=== PATIENT | male | born 1945 | race Caucasian/White ===

== ENCOUNTER 2017-02-24 05:40 | Outpatient (CLI) | payer MEDICARE ==
[~2017-02-24] VITALS: Ht 190.5 cm; Wt 90.7 kg
[2017-02-24] MEDS ORDERED: RANI150T15 PO (10:02)
[2017-02-24] MEDS ORDERED: LISI-552 PO (10:02)
[2017-02-24] MEDS ORDERED: MELA5CAP PO (10:02)
[2017-02-26] MEDS ORDERED: PANT40TA2 PO (10:55)
== END 2017-02-24 10:11 ==
LOC: PREOP 05:40
PROVIDERS: ATTEND Surgery Pediatric Surgery
DX: Z01.818 Encounter for other preprocedural examination (principal); R19.4 Change in bowel habit; R19.7 Diarrhea, unspecified; K21.9 Gastro-esophageal reflux disease without esophagitis; Z86.010 Personal history of colon polyps

== ENCOUNTER 2017-02-26 08:28 | Day surgery (SDC) | payer MEDICARE ==
[~2017-02-26] VITALS: Ht 190.5 cm; Wt 90.7 kg
[~2017-02-26 08:28] MED LIST: LISI-552 PO; MELA5CAP PO; RANI150T15 PO
[2017-02-26 08:40] VITALS: BP 134/79
[2017-02-26] MEDS ORDERED: NS IV 500 ML 500 ML IV PRN (08:50)
[2017-02-26] MEDS ORDERED: LIDOCAINE JELLY 2% (XYLOCAINE) 5 ML TUBE MM PRN (09:00)
[2017-02-26] MEDS ORDERED: HURRICAINE EXT TUBE (BENZOCAINE) XX PRN (09:00)
[2017-02-26] MEDS ORDERED: NALOXONE 0.4 MG/ML 1 ML (NARCAN) VIAL IVP PRN (09:00)
[2017-02-26] MEDS ORDERED: FLUMAZENIL (ROMAZICON) 0.1 MG/ML 5 ML VIAL INJ PRN (09:00)
[2017-02-26] MEDS ORDERED: LIDOCAINE JELLY 2% (XYLOCAINE) 5 ML TUBE ONE (09:38)
[2017-02-26] MEDS ORDERED: fentaNYL INJECTION 100 MCG/2 ML AMP ONE ×2 (09:38)
[2017-02-26] MEDS ORDERED: HURRICAINE EXT TUBE (BENZOCAINE) ONE (09:39)
[2017-02-26] MEDS ORDERED: MIDAZOLAM 2 MG/2 ML (VERSED) VIAL ONE ×5 (09:39)
--- NOTE | 2017-02-26 09:41 | Conscious Sedation/ASA ---
Conscious Sedation Pre-Proced Time Reviewed: 09:30 ASA Class: 2 Airway Mallampati Classification: (red devil appropriate class) I. II. III, IV Lungs Heart ASA score ASA 1: a normal healthy patient ASA 2: a patient with a mild systemic disease (mid diabetes, controlled hypertension, obesity ASA 3: a patient with a severe systemic disease that limits activity (angina , COPD, prior Myocardial infarction) ASA 4: a patient with an incapacitating disease that is a constant threat to life (CHF, renal failure) ASA 5: a moribund patient not expected to survive 24 hrs. (ruptured aneurysm) ASA 6: a declared brain patient whose organs are being harvested. For emergent operations, add the letter E after the classification Grade 2 Sedation Plan: Analgesia, Amnesia, Plan communicated to team members, Discussed options with patient/fam, Discussed risks with patient/fam Note The patient is an appropriate candidate to undergo the planned procedure, sedation, and anesthesia. The patient immediately re-assessed prior to indication. DEEPAK RUSHING MD Feb 26, 2017 9:41 am
--- NOTE | 2017-02-26 09:42 | Progress Note-Pre Operative ---
Pre-Operative Progress Note H&P Reviewed The H&P was reviewed, patient examined and no changes noted. Date H&P Reviewed: Feb 26, 2017 Time H&P Reviewed: 09:30 Pre-Operative Diagnosis: GERD, hx of colon polyp DEEPAK RUSHING MD Feb 26, 2017 9:42 am
[2017-02-26] MEDS ORDERED: ONDANSETRON 4 MG/2 ML (SDV) Z0FRAN IV PRN (09:45)
[2017-02-26] MEDS ORDERED: HYDROcodone/APAP 5 MG/325 MG (LORTAB) TAB PO PRN (09:45)
[2017-02-26] MEDS ORDERED: ACETAMINOPHEN 325 MG TABLET/CAPLET (TYLENOL) PO PRN (09:45)
[2017-02-26] MEDS ORDERED: morphine INJ 10 MG/ML 1ML (SYR OR VIAL) IV PRN (09:45)
[2017-02-26] MEDS: fentaNYL INJECTION 100 MCG/2 ML AMP IVP PRN ×4 (09:50→10:10)
[2017-02-26] MEDS: MIDAZOLAM 2 MG/2 ML (VERSED) VIAL IVP PRN ×6 (09:51→10:39)
--- NOTE | 2017-02-26 10:54 | Progress Note-Post Operative ---
Post-Operative Progess Note Surgeon (s)/Service Planner (s) Surgeon DEEPAK RUSHING MD Service Planner: none Pre-Operative Diagnosis GERD, hx of colon polyp Post-Operative Diagnosis reflux esophagitis(class B), small HH(2cm), moderate gastritis. chronic stage 2 ext and int hemorrhoids. Post-Op Procedure Note Date of Procedure: Feb 26, 2017 Name of Procedure Performed: reflux esophagitis(class B), small HH(2cm), moderate gastritis. chronic stage 2 ext and int hemorrhoids. Description of the Procedure: EGD with bx. Colonoscopy. Findings of the Procedure . Anesthesia Type CS Estimated blood loss (mL): minimal Specimen(s) collected/removed GE jxn, antrum DEEPAK RUSHING MD Feb 26, 2017 10:54 am
[2017-02-26] MEDS ORDERED: PANT40TA2 PO (10:55)
--- NOTE | 2017-02-26 10:56 | Discharge Inst-Surgical ---
D/C Lap Instructions-KIDO New, Converted, or Re-Newed RX: RX on Chart Follow Up Appt in 6 weeks Activity as tolerated High Fiber Diet 25g or more per day Avoid Alcohol, Caffeine, Spicy [place] and Acid foods. Drink 64 fluid oz or more of fluids per day. Symptoms to Report: Fever over 101 degree F, Nausea/Vomiting If any problems/questions: Contact your physician or go to Emergency Room DEEPAK RUSHING MD Feb 26, 2017 10:56 am
[2017-02-26 11:05] VITALS: BP 107/63
[2017-02-26 11:30] VITALS: BP 117/75
[2017-02-26 11:45] VITALS: BP 117/75
--- NOTE | 2017-02-26 14:41 | PROCEDURE REPORT ---
PROCEDURE PHYSICIAN: DEEPAK FREY DATE OF PROCEDURE: 02/26/2017 ATTENDING PRIMARY CARE PHYSICIAN: Dr. Bereket Morataya. PREOPERATIVE DIAGNOSIS: 1. Gastroesophageal reflux disease. 2. History of colon polyp. POSTOPERATIVE DIAGNOSES: 1. Reflux esophagitis, class B. 2. Small hiatal hernia, approximately 2 cm in size. 3. Moderate severity gastritis. 4. Chronic, stage II external and internal hemorrhoids. 5. The remainder of the rectum and colon were normal. PROCEDURE: 1. EGD with biopsy. 2. Colonoscopy. SURGEON: Dr. Frey. ANESTHESIA: Conscious sedation. ESTIMATED BLOOD LOSS: Minimal. FINDINGS: EGD: 1. Reflux esophagitis, class B. 2. Small hiatal hernia, approximately 2 cm in size. 3. There was a moderate severity gastritis. 4. There were no formal ulcers, polyps or any neoplasms. 5. The pylorus and duodenum appeared normal. COLONOSCOPY: 1. Chronic, stage II external and internal hemorrhoids. 2. Prostate gland was palpable and appeared normal. 3. The remainder of the rectum and colon were normal. No polyps identified. DISPOSITION: The patient tolerated the procedure well. BRIEF HISTORY: Mr. Se Dc is a 72-year-old male with symptoms of gastroesophageal reflux disease, as well as increased belching, bloating as well as mild dysphagia. He reports that he has also had some looser stools recently. He states that he did have a colonoscopy in 2011 where a polyp of the ascending colon was identified which was also biopsied and benign. He does not report any family history of colon cancer. He reports that he has been taking more antacids due to his upper gastrointestinal symptoms. The patient was brought to the endoscopy suite, laid in left lateral decubitus position. After adequate IV pain and sedative medications and conscious sedation anesthesia, the mouthpiece was applied. The endoscope was placed in the mouth, visualizing the pharynx and hypopharyngeal region. Vocal cords, epiglottis and vallecula identified to be normal. The endoscope was gently intubated into the esophageal opening and the esophagus insufflated. The endoscope was then advanced through the first, second, and 3rd portions of the esophagus and at the level of the GE junction, a reflux esophagitis, class B identified. There were no ulcers or strictures identified in this region. The endoscope was then advanced into the stomach and endoscope retroflexed visualizing a small hiatal hernia, approximately 2 cm in size. There was a moderate severity gastritis also noted throughout the stomach. There were no formal ulcers, polyps or any neoplasms identified. A biopsy was taken of the stomach antrum, with forceps of visualization of good hemostasis. The endoscope was slowly withdrawn while taking a second look and suctioning of residual air with no additional findings. The patient tolerated the procedure well. For his symptoms of belching, bloating, reflux and dysphagia we will recommend conservative management with necessary lifestyle and diet accommodation including smaller, more frequent meals, avoidance of eating at night, as well as head elevation while lying supine. He also needs to avoid caffeinated beverages, spicy, greasy and acidic foods. We will also start him on Protonix 40 mg daily. If he does have continued or worsening symptoms despite maximal medical therapy, he may be a candidate for laparoscopic hiatal hernia repair as well as an antireflux procedure. Before this we would proceed with esophageal manometric study to rule out any upper gastrointestinal dysmotility issues. Under the same conscious sedation anesthesia, we then proceeded with the colonoscopy portion the procedure. A digital rectal examination was performed, which revealed chronic external and internal hemorrhoids which were not actively edematous or inflamed and no bleeding. Normal sphincter tone was felt and there were no palpable masses. Prostate gland was palpable and appeared normal. The endoscope was then intubated into the anus and the rectum gently insufflated. The endoscope was then advanced through the valves of [place] the rectum where no polyps or any neoplasms identified. We then proceeded through the sigmoid colon where no diverticulosis identified. The endoscope was then advanced through the remainder of the descending, transverse, and ascending colon of the cecum. These segments were normal. There were no polyps or any neoplasms identified throughout the colon or rectum. The endoscope was then slowly withdrawn while taking a second look and suctioning of residual air with no additional findings. The patient tolerated this portion the procedure well. We will have him continue with medical management with a high fiber diet with at least 30 grams of fiber per day, as well as at least 64 fluid ounces of water daily to promote soft stools on a daily basis. No polyps were identified and we feel at this time, he may wait another 10 years for his next colonoscopy however, sooner if any problems arise. Job ID: [id number] Dictated Date: 02/26/2017 10:56:04 Insurance Account Executive Date: 02/26/2017 14:30:00 / felix
--- OUTSIDE RECORDS SUMMARY | 2017-03-30 16:37 | XMS REPORT | Continuity of Care Document ---
Author Author [facility] Organization [facility] Address Unknown Phone Unavailable Allergies Active Description Code Type Severity Reaction Onset Reported/Identified Relationship to Patient Clinical Status Yes ciprofloxacin [id number] Drug Allergy Mild RASH 02/24/2017 Medications Problems Date Dx Coded Attending Type Code Diagnosis Diagnosed By 02/01/2016 ZUNILDA DE LA ROSA MD, Ot N44.8 02/20/2016 ZUNILDA DE LA ROSA MD, Ot N44.8 03/06/2016 ZUNILDA DE LA ROSA MD, Ot N44.8 02/24/2017 DEEPAK RUSHING MD, Ot K21.9 GASTRO-ESOPHAGEAL REFLUX DISEASE WITHOUT 02/24/2017 DEEPAK RUSHING MD Ot R19.4 CHANGE IN BOWEL HABIT 02/24/2017 DEEPAK RUSHING MD Ot R19.7 DIARRHEA, UNSPECIFIED 02/24/2017 DEEPAK RUSHING MD Ot Z01.818 ENCOUNTER FOR OTHER PREPROCEDURAL EXAMIN 02/24/2017 DEEPAK RUSHING MD Ot Z86.010 PERSONAL HISTORY OF COLONIC POLYPS 02/25/2017 DEEPAK RUSHING MD Ot K21.9 GASTRO-ESOPHAGEAL REFLUX DISEASE WITHOUT 02/25/2017 DEEPAK RUSHING MD Ot R19.4 CHANGE IN BOWEL HABIT 02/25/2017 DEEPAK RUSHING MD Ot R19.7 DIARRHEA, UNSPECIFIED 02/25/2017 DEEPAK RUSHING MD Ot Z01.818 ENCOUNTER FOR OTHER PREPROCEDURAL EXAMIN 02/25/2017 DEEPAK RUSHING MD Ot Z86.010 PERSONAL HISTORY OF COLONIC POLYPS 02/26/2017 ZUNILDA DE LA ROSA MD Ot N44.8 OTHER NONINFLAMMATORY DISORDERS OF THE T 02/26/2017 ZUNILDA DE LA ROSA MD Ot N44.8 OTHER NONINFLAMMATORY DISORDERS OF THE T 02/27/2017 DEEPAK RUSHING MD Ot K21.0 GASTRO-ESOPHAGEAL REFLUX DISEASE WITH ES 02/27/2017 DEEPAK RUSHING MD Ot K29.70 GASTRITIS, UNSPECIFIED, WITHOUT BLEEDING 02/27/2017 DEEPAK RUSHING MD Ot K44.9 DIAPHRAGMATIC HERNIA WITHOUT OBSTRUCTION 02/27/2017 DEEPAK RUSHING MD Ot K64.1 SECOND DEGREE HEMORRHOIDS 02/27/2017 DEEPAK RUSHING MD Ot K21.0 GASTRO-ESOPHAGEAL REFLUX DISEASE WITH ES 02/27/2017 DEEPAK RUSHING MD Ot K29.70 GASTRITIS, UNSPECIFIED, WITHOUT BLEEDING 02/27/2017 DEEPAK RUSHING MD Ot K44.9 DIAPHRAGMATIC HERNIA WITHOUT OBSTRUCTION 02/27/2017 DEEPAK RUSHING MD Ot K64.1 SECOND DEGREE HEMORRHOIDS 03/07/2017 DEEPAK RUSHING MD Ot K21.0 GASTRO-ESOPHAGEAL REFLUX DISEASE WITH ES 03/07/2017 DEEPAK RUSHING MD, Ot K29.70 GASTRITIS, UNSPECIFIED, WITHOUT BLEEDING 03/07/2017 DEEPAK RUSHING MD Ot K44.9 DIAPHRAGMATIC HERNIA WITHOUT OBSTRUCTION 03/07/2017 DEEPAK RUSHING MD Ot K64.1 SECOND DEGREE HEMORRHOIDS Procedures Results Encounters ACCT No. Visit Date/Time Discharge Status Pt. Type Provider Facility Loc./Unit Complaint [id number] 02/26/2017 08:28:00 2016 11:45:00 DIS Outpatient DEEPAK RUSHING MD [facility] ENDO REFLUX;HX POLYPS;CHANGE IN BOWEL HABITS [id number] 02/24/2017 05:40:00 2016 10:11:00 DIS Outpatient DEEPAK RUSHING MD [facility] PREOP REFLUX;HX POLYPS; CHANGE IN BOWEL HABITS [id number] 01/31/2016 12:25:00 ACT Outpatient RJ FOX , ZUNILDA Alicia [facility] RAD INFLAMATORY DISORDER OF TESTIS
== END 2017-02-26 11:45 | disposition home or self-care (01) ==
LOC: ENDO 08:28
PROVIDERS: ATTEND Surgery Pediatric Surgery
DX: K21.0 Gastro-esophageal reflux disease with esophagitis (principal); K64.1 Second degree hemorrhoids; K29.70 Gastritis, unspecified, without bleeding; K44.9 Diaphragmatic hernia without obstruction or gangrene
CPT/HCPCS: 88305

== ENCOUNTER → 2017-10-07 | Outpatient (CLI) | payer MEDICARE ==
[~2017-10-07] MED LIST changes: +PANT40TA2 PO
--- NOTE | 2017-10-07 12:06 | Diagnostic Imaging Report ---
PA and lateral views of the chest. INDICATION: Chest pain. FINDINGS: The lungs are clear. The heart size is normal. No effusion or pneumothorax. The mediastinum and john appear unremarkable. Anchors projecting over the right humeral head are suggestive of prior rotator cuff surgery. IMPRESSION: No acute process. Dictated by: Dictated on workstation # [id number]
--- NOTE | 2017-10-07 12:09 | Diagnostic Imaging Report ---
EXAMINATION: Two views of the right clavicle. INDICATION: Right clavicle pain. FINDINGS: There are osteoarthritic changes with superior osteophytes and mild inferior osteophytes at the right AC joint. There is no fracture or dislocation seen. Anchors projecting over the right humerus head level seen. IMPRESSION: Moderate acromioclavicular joint osteoarthritis. Dictated by: Dictated on workstation # [id number]
== END ==
LOC: RAD 11:37
DX: R07.9 Chest pain, unspecified (principal); M19.011 Primary osteoarthritis, right shoulder
CPT/HCPCS: 71020; 73000

== ENCOUNTER → 2018-02-26 | Outpatient (CLI) | payer MEDICARE ==
[~2018-02-26] MED LIST changes: +ASPI-983 PO; +ASPI-999 PO; +ATOR20TA49 PO; +CLOP75TA28 PO; +PANT40TA3 PO; +SUCR1TAB PO; +SUCR1TAB36 PO
[2018-02-26 09:43] LABS: BASOPHILS % (AUTO) 0 % (0-10); EOSINOPHILS % (AUTO) 1 % (0-10); HEMATOCRIT 43 % (40-54); HEMOGLOBIN 14.9 G/DL (13.3-17.7); LYMPHOCYTES # (AUTO) 0.8 X 10^3 (1.0-4.0); LYMPHOCYTES % (AUTO) 14 % (12-44); MEAN CORPUSCULAR HEMOGLOBIN 32 PG (25-34); MEAN CORPUSCULAR HGB CONC 35 G/DL (32-36); MEAN CORPUSCULAR VOLUME 91 FL (80-99); MEAN PLATELET VOLUME 10.2 FL (7.4-10.4); MONOCYTES # (AUTO) 0.6 X 10^3 (0.0-1.0); MONOCYTES % (AUTO) 12 % (0-12); NEUTROPHILS % (AUTO) 73 % (42-75); PLATELET COUNT 166 10^3/uL (130-400); RED BLOOD COUNT 4.71 10^6/uL (4.35-5.85); RED CELL DISTRIBUTION WIDTH 13.2 % (10.0-14.5); WHITE BLOOD COUNT 5.5 10^3/uL (4.3-11.0)
== END ==
LOC: LAB 09:23
PROVIDERS: ATTEND Internal Medicine Cardiovascular Disease
DX: R31.9 Hematuria, unspecified (principal)
CPT/HCPCS: 36415; 85025

== ENCOUNTER → 2018-03-03 | Outpatient (CLI) | payer MEDICARE ==
[2018-03-03 08:21] LABS: ALANINE AMINOTRANSFERASE 21 U/L (0-55); ALBUMIN 4.4 GM/DL (3.2-4.5); ALKALINE PHOSPHATASE 64 U/L (40-136); BILIRUBIN,TOTAL 0.9 MG/DL (0.1-1.0); BUN/CREATININE RATIO 18; CALCIUM 9.5 MG/DL (8.5-10.1); CARBON DIOXIDE 30 MMOL/L (21-32); CHLORIDE 106 MMOL/L (98-107); CHOLESTEROL 96 MG/DL (< 200); CREATININE SERUM 1.02 MG/DL (0.60-1.30); GFR ESTIMATED > 60; GLUCOSE 90 MG/DL (70-105); HDL CHOLESTEROL 35 MG/DL (40-60); POTASSIUM 4.7 MMOL/L (3.6-5.0); SODIUM 141 MMOL/L (135-145); TOTAL PROTEIN 7.5 GM/DL (6.4-8.2); TRIGLYCERIDES 55 MG/DL (<150); VLDL CHOLESTEROL 11 MG/DL (5-40)
== END ==
LOC: LAB 07:42
PROVIDERS: ATTEND Nurse Practitioner Family
DX: I21.4 Non-ST elevation (NSTEMI) myocardial infarction (principal)
CPT/HCPCS: 36415; 80053; 80061

== ENCOUNTER → 2020-04-14 | Outpatient (CLI) | payer MEDICARE ==
[~2020-04-14] MED LIST changes: +RANI-613 PO; -RANI150T15 PO
== END ==
LOC: CARD 09:29
PROVIDERS: ATTEND Nurse Practitioner Family
DX: I48.92 Unspecified atrial flutter (principal)
CPT/HCPCS: 93225; 93226

== ENCOUNTER 2020-05-22 12:28 | Outpatient (CLI) | payer MEDICARE | END 2020-05-22 13:17 | disposition home or self-care (01) | LOC: SLEEP 12:28 | PROVIDERS: ATTEND Otolaryngology Otolaryngology/Facial Plastic Surgery | DX: G47.33 Obstructive sleep apnea (adult) (pediatric) (principal); G47.36 Sleep related hypoventilation in conditions classified elsewhere ==

== ENCOUNTER → 2020-06-05 | Outpatient (CLI) | payer MEDICARE | LOC: LABNPT 06:50 | PROVIDERS: ATTEND Otolaryngology Otolaryngology/Facial Plastic Surgery | DX: Z20.828 Contact with and (suspected) exposure to other viral communicable diseases (principal) | CPT/HCPCS: 87635 ==

== ENCOUNTER 2020-06-12 20:42 | Outpatient (CLI) | payer MEDICARE | END 2020-06-13 06:03 | disposition home or self-care (01) | LOC: SLEEP 20:42 | PROVIDERS: ATTEND Otolaryngology Otolaryngology/Facial Plastic Surgery | DX: G47.33 Obstructive sleep apnea (adult) (pediatric) (principal); G47.31 Primary central sleep apnea; R00.1 Bradycardia, unspecified; Z20.828 Contact with and (suspected) exposure to other viral communicable diseases | CPT/HCPCS: 95811 ==

== ENCOUNTER → 2020-09-19 | Outpatient (CLI) | payer MEDICARE ==
[~2020-09-19] VITALS: Ht 190 cm; Wt 90.0 kg
[~2020-09-19] MED LIST changes: +ASPI-1238 PO; -ASPI-983 PO; -PANT40TA3 PO; +PANT40TA52 PO; +REGADENOSON 0.4 MG/5 ML SYR (LEXISCAN) IV ONE
[2020-09-19] MEDS: CATHETER FLUSH 10 ML SYR IV PRN ×2 (07:42→08:59)
[2020-09-19 08:58] VITALS: BP 138/76
--- NOTE | 2020-09-19 13:58 | STRESS TEST ---
DATE OF SERVICE: 09/19/2020 RESTING AND POST REGADENOSON TECHNETIUM-99M TETROFOSMIN SPECT CT IMAGING ORDERING PHYSICIAN: Dr. Gates. PRIMARY PHYSICIAN: Dr. Morataya. CLINICAL DIAGNOSES: Chest discomfort, coronary artery disease. Baseline images were carried out after injection of 10.54 mCi of technetium-99m Tetrofosmin. This was followed by 0.4 mg regadenoson and 29.6 mCi of technetium-99m Tetrofosmin for stress imaging. The electrocardiogram showed sinus bradycardia. Isolated premature ventricular contractions were seen. The electrocardiogram did not change significantly with regadenoson infusion. The patient tolerated the procedure well. Review of images at rest and following stress does not indicate any significant perfusion defects consistent with myocardial ischemia or infarction. Gated images show global left ventricular systolic function to be at the lower limit of normal. Left ventricular ejection fraction is calculated to be 49%. Left ventricular end diastolic volume is 137 mL. TID is absent (1.13). CONCLUSIONS: 1. No evidence of significant myocardial ischemia or infarction on this study. 2. Left ventricular systolic function at the lower limit of normal with a calculated ejection fraction approximately 49%. 3. No regional wall motion abnormality. 4. Mild to moderate cardiomegaly. Job ID: [id number] DocumentID: [id number] Dictated Date: 09/19/2020 11:29:36 Clinical Biostatistician Date: 09/19/2020 13:57:09 Dictated By: DEVIN GATES MD, MA, FACP, FACC,
== END ==
LOC: CARD 08:00
PROVIDERS: ATTEND Internal Medicine Cardiovascular Disease
DX: R07.89 Other chest pain (principal); I25.10 Atherosclerotic heart disease of native coronary artery without angina pectoris; I77.89 Other specified disorders of arteries and arterioles; I11.9 Hypertensive heart disease without heart failure; I48.3 Typical atrial flutter
CPT/HCPCS: 78452; 93017; A9502

== ENCOUNTER 2021-03-26 05:40 | Outpatient (CLI) | payer MEDICARE ==
[~2021-03-26] VITALS: Ht 190.5 cm; Wt 90.0 kg
[~2021-03-26 05:40] MED LIST changes: -LISI-552 PO; +LISI20TA26 PO; -REGADENOSON 0.4 MG/5 ML SYR (LEXISCAN) IV ONE
[2021-03-27] MEDS ORDERED: FAMO20TA3 PO (08:45)
[2021-03-27] MEDS ORDERED: ATOR10TA66 PO (08:45)
[2021-03-27] MEDS ORDERED: APIX5TAB PO (08:45)
[2021-03-27] MEDS ORDERED: DIPH1TAB PO (08:45)
[2021-03-27] MEDS ORDERED: HYDR200T46 PO (08:45)
== END 2021-03-27 08:46 | disposition home or self-care (01) ==
LOC: PREOP 05:40
PROVIDERS: ATTEND Specialist
DX: Z01.818 Encounter for other preprocedural examination (principal)

== ENCOUNTER 2021-03-30 08:03 | Day surgery (SDC) | payer MEDICARE ==
[~2021-03-30] VITALS: Ht 190.5 cm; Wt 90.0 kg
[~2021-03-30 08:03] MED LIST changes: +APIX5TAB PO; +ATOR10TA66 PO; +DIPH1TAB PO; +FAMO20TA3 PO; +HYDR200T46 PO
[2021-03-30] MEDS: TETRACAINE 0.5% OPHTH SOLN 4 ML BTL (SINGLE DOSE ONLY) OU PRN ×4 (08:26→08:43)
[2021-03-30] MEDS ORDERED: TIMOLOL MALEATE 0.5% 5 ML (TIMOPTIC) BTL OU PRN (08:30)
[2021-03-30] MEDS ORDERED: POVIDONE (BETADINE) OPHTH SOLN 5% 30 ML OP ONE (08:30)
[2021-03-30] MEDS ORDERED: MOXIFLOXACIN OPHTH SOLN 5 MG/ML 0.3 ML SYRINGE OP ONE (08:30)
[2021-03-30] MEDS ORDERED: LIDOCAINE PF 1% 2 ML VIAL IR PRN (08:30)
[2021-03-30] MEDS ORDERED: MIDAZOLAM 2 MG/2 ML (VERSED) VIAL ONE (08:31)
[2021-03-30] MEDS: TROPICAMIDE 1% OPH SOLN (MYDRIACYL) 15 ML BTL OP SCH ×3 (08:33→08:43)
[2021-03-30] MEDS: PHENYLEPHRINE 10% OPHTH (NEO-SYN) 5 ML BTL OU SCH ×3 (08:33→08:43)
[2021-03-30 08:40] VITALS: BP 131/73
--- NOTE | 2021-03-30 08:57 | Ophthalmologist Pre-Op Note ---
Pre-Operative Progress Note H&P Reviewed The H&P was reviewed, patient examined and no changes noted. Date H&P Reviewed: March 30, 2021 Time H&P Reviewed: 08:57 Pre-Op Dx Cataract, Left Eye PAULA BRAMBILA MD March 30, 2021 08:57
--- NOTE | 2021-03-30 09:17 | Ophthalmology Operative Report ---
Cataract removal/placement IOL PREOPERATIVE DIAGNOSIS: Cataract Left Eye POSTOPERATIVE DIAGNOSIS: Cataract Left Eye PROCEDURE: Cataract removal and placement of posterior chamber implant, left eye SURGEON: Nam Brambila ANESTHESIA: Topical with sedation COMPLICATIONS: None ESTIMATED BLOOD LOSS: Minimal DESCRIPTION OF PROCEDURE: After proper informed consent was obtained, the patient, a 75 male, was taken to the Operating Room and the left eye was anesthetized with tetracaine. The left eye was then prepped and draped in the usual manner. A wire lid speculum was placed. A paracentesis was made at the left hand position. Preservative free lidocaine was injected into the anterior chamber followed by viscoelastic. A clear corneal incision was made in the temporal position. A capsulorrhexis was preformed and the central nuclear and cortical material were removed. The posterior capsule was polished and an Robbin 24.0 AU00T0 was placed into the capsular bag. The residual viscoelastic was aspirated and balanced saline solution was injected into the anterior chamber. Moxifloxacin was injected into the anterior chamber. The wound was checked and found to be water tight. The patient tolerated the procedure well without complications. NAM BRAMBILA MD March 30, 2021 09:17
[2021-03-30 09:30] VITALS: BP 124/61
[2021-03-30] MEDS ORDERED: acetaZOLAMIDE ER 500 MG CAP (DIAMOX SEQUELS) PO ONE (09:30)
--- NOTE | 2021-03-30 10:25 | Anesthesia-General Post-Op ---
MAC Patient Condition Mental Status/LOC: Same as Preop Cardiovascular: Satisfactory Nausea/Vomiting: Absent Respiratory: Satisfactory Pain: Controlled Complications: Absent Post Op Complications Complications None Follow Up Care/Instructions Patient Instructions None needed. Anesthesiology Discharge Order Discharge Order Patient is doing well, no complaints, stable vital signs, no apparent adverse anesthesia problems. No complications reported per nursing. ALTON WILKERSON CRNA March 30, 2021 10:25
== END 2021-03-30 09:30 | disposition home or self-care (01) ==
LOC: SDC 08:03
PROVIDERS: ATTEND Specialist
DX: H25.12 Age-related nuclear cataract, left eye (principal); I25.2 Old myocardial infarction; M19.90 Unspecified osteoarthritis, unspecified site; Z79.01 Long term (current) use of anticoagulants; Z79.899 Other long term (current) drug therapy; Z80.9 Family history of malignant neoplasm, unspecified
CPT/HCPCS: 66984; V2632

== ENCOUNTER 2021-04-11 05:56 | Outpatient (CLI) | payer MEDICARE ==
[~2021-04-11] VITALS: Ht 190.5 cm; Wt 90.9 kg
== END 2021-04-12 09:54 | disposition home or self-care (01) ==
LOC: PREOP 05:56
PROVIDERS: ATTEND Specialist
DX: Z01.818 Encounter for other preprocedural examination (principal)

== ENCOUNTER 2021-04-13 07:22 | Day surgery (SDC) | payer MEDICARE ==
[~2021-04-13] VITALS: Ht 190.5 cm; Wt 90.9 kg
[2021-04-13 07:40] VITALS: BP 143/76
[2021-04-13] MEDS: TETRACAINE 0.5% OPHTH SOLN 4 ML BTL (SINGLE DOSE ONLY) OU PRN ×4 (07:40→08:14)
[2021-04-13] MEDS ORDERED: MOXIFLOXACIN OPHTH SOLN 5 MG/ML 0.3 ML SYRINGE OP ONE (07:45)
[2021-04-13] MEDS ORDERED: acetaZOLAMIDE ER 500 MG CAP (DIAMOX SEQUELS) PO ONE (07:45)
[2021-04-13] MEDS ORDERED: POVIDONE (BETADINE) OPHTH SOLN 5% 30 ML OP ONE (07:45)
[2021-04-13] MEDS ORDERED: TIMOLOL MALEATE 0.5% 5 ML (TIMOPTIC) BTL OU PRN (07:45)
[2021-04-13] MEDS ORDERED: LIDOCAINE PF 1% 2 ML VIAL IR PRN (07:45)
[2021-04-13] MEDS: PHENYLEPHRINE 10% OPHTH (NEO-SYN) 5 ML BTL OU SCH ×3 (07:59→08:14)
[2021-04-13] MEDS: TROPICAMIDE 1% OPH SOLN (MYDRIACYL) 15 ML BTL OP SCH ×3 (08:00→08:14)
--- NOTE | 2021-04-13 08:37 | Ophthalmologist Pre-Op Note ---
Pre-Operative Progress Note H&P Reviewed The H&P was reviewed, patient examined and no changes noted. Date H&P Reviewed: April 13, 2021 Time H&P Reviewed: 08:37 Pre-Op Dx Cataract, Right Eye PAULA BRAMBILA MD April 13, 2021 08:37
--- NOTE | 2021-04-13 09:00 | Ophthalmology Operative Report ---
Cataract removal/placement IOL PREOPERATIVE DIAGNOSIS: Cataract Right Eye POSTOPERATIVE DIAGNOSIS: Cataract Right Eye PROCEDURE: Cataract removal and placement of posterior chamber implant, right eye SURGEON: Nam Brambila ANESTHESIA: Topical with sedation COMPLICATIONS: None ESTIMATED BLOOD LOSS: Minimal DESCRIPTION OF PROCEDURE: After proper informed consent was obtained, the patient, a 75 male, was taken to the Operating Room and the right eye was anesthetized with tetracaine. The right eye was then prepped and draped in the usual manner. A wire lid speculum was placed. A paracentesis was made at the left hand position. Preservative free lidocaine was injected into the anterior chamber followed by viscoelastic. A clear corneal incision was made in the temporal position. A capsulorrhexis was preformed and the central nuclear and cortical material were removed. The posterior capsule was polished and Robbin 21.5 AU00T0 IOL was placed into the capsular bag. The residual viscoelastic was aspirated and balanced saline solution was injected into the anterior chamber. Moxifloxacin was injected into the anterior chamber. The wound was checked and found to be water tight. The patient tolerated the procedure well without complications. NAM BRAMBILA MD April 13, 2021 09:00
[2021-04-13 09:15] VITALS: BP 124/71
--- NOTE | 2021-04-15 12:42 | Anesthesia-General Post-Op ---
MAC Significant Intra-Op Events Notes post date entry from 04/13/21 at 1315 Patient Condition Mental Status/LOC: Same as Preop Cardiovascular: Satisfactory Nausea/Vomiting: Absent Respiratory: Satisfactory Pain: Controlled Complications: Absent Post Op Complications Complications None Follow Up Care/Instructions Patient Instructions None needed. Anesthesiology Discharge Order Discharge Order Patient is doing well, no complaints, stable vital signs, no apparent adverse anesthesia problems. No complications reported per nursing. SKYLER RUCKER CRNA April 15, 2021 12:42
== END 2021-04-13 09:15 | disposition home or self-care (01) ==
LOC: SDC 07:22
PROVIDERS: ATTEND Specialist
DX: H25.11 Age-related nuclear cataract, right eye (principal); I10 Essential (primary) hypertension; K21.9 Gastro-esophageal reflux disease without esophagitis; M19.90 Unspecified osteoarthritis, unspecified site; Z79.01 Long term (current) use of anticoagulants; Z98.890 Other specified postprocedural states; Z79.899 Other long term (current) drug therapy; Z80.9 Family history of malignant neoplasm, unspecified; Z88.1 Allergy status to other antibiotic agents
CPT/HCPCS: 66984; V2632

== ENCOUNTER → 2021-11-22 | Outpatient (CLI) | payer MEDICARE ==
--- NOTE | 2021-11-22 13:09 | Diagnostic Imaging Report ---
EXAMINATION: PA and lateral chest at 11:37 a.m. INDICATION: Lipoma of back. FINDINGS: The heart size is within normal limits and stable when compared to 10/07/2017. The lungs remain clear. There is still no sign of failure, pneumonia or pleural effusion. The mediastinum is not widened. The osseous structures are intact. As noted on the prior exam, there are two orthopedic fixation devices overlying the right humeral head. The lateral view does suggest that there is a soft tissue fullness along the posterior aspect of the upper thoracic spine. This measures approximately 2.8 x 12.4 cm. In retrospect, this may have been present on the prior exam although it was not well-visualized. This may be related to the patient's reported lipoma. If further study is desired, then ultrasound would be recommended. IMPRESSION: 1. There is no acute cardiopulmonary abnormality identified. 2. The soft tissue fullness along the posterior aspect of the upper thoracic spine may be related to the patient's diagnosis of lipoma. Recommendations as above. Dictated by: Dictated on workstation # [id number]
== END ==
LOC: RAD 11:20
DX: D17.1 Benign lipomatous neoplasm of skin and subcutaneous tissue of trunk (principal)
CPT/HCPCS: 71046

== ENCOUNTER → 2021-11-30 | Outpatient (CLI) | payer MEDICARE ==
--- NOTE | 2021-11-30 11:43 | Diagnostic Imaging Report ---
INDICATION: Palpable abnormality inferior to the scapula. EXAMINATION: Left upper extremity sonogram, nonvascular 11/30/2021. FINDINGS: Grayscale color ultrasound imaging of the area of concern is performed. No solid or cystic masses appreciated. IMPRESSION: 1. Unremarkable sonogram. If there is a persistent true palpable abnormality, MRI of the region with and without contrast recommended. Dictated by: Dictated on workstation # [id number]
== END ==
LOC: RAD 10:00
DX: D49.2 Neoplasm of unspecified behavior of bone, soft tissue, and skin (principal)
CPT/HCPCS: 76881